=== PATIENT | male | born 1980 | race Caucasian/White ===

== ENCOUNTER 2020-07-11 06:59 | Day surgery (SDC) | payer BC ==
[~2020-07-11 06:59] MED LIST: Lactated Ringers 1,000 ML IV SCH
[2020-07-11] MEDS ORDERED: fentaNYL 100 MCG/2 ML SDV ONE (07:31)
[2020-07-11] MEDS ORDERED: Propofol 200 MG/20 ML SDV ONE ×2 (07:31→08:58)
[2020-07-11] MEDS ORDERED: Midazolam 1 MG/ML 2 ML SDV ONE (07:31)
--- NOTE | 2020-07-11 08:05 | PCM.PREANE ---
Preanesthetic Assessment - Anesthesia/Transfusion/Family Hx Anesthesia History: Prior Anesthesia Without Reaction Family History of Anesthesia Reaction: No Transfusion History: No Prior Transfusion(s) Intubation History: Unknown - Review of Systems General: No Symptoms Pulmonary: No Symptoms Cardiovascular: No Symptoms Gastrointestinal: Hematochezia Neurological: No Symptoms Other: Reports: None - Physical Assessment Height: 6 ft 3 in Weight: 104.326 kg ASA Class: 2 Mental Status: Alert & Oriented x3 Airway Class: Mallampati = 2 Dentition: Reports: Normal Dentition Thyro-Mental Finger Breadths: 3 Mouth Opening Finger Breadths: 3 ROM/Head Extension: Full Lungs: Clear to Auscultation, Normal Respiratory Effort Cardiovascular: Regular Rate, Regular Rhythm - Allergies Allergies/Adverse Reactions: Allergies Allergy/AdvReac Type Severity Reaction Status Date / Time No Known Allergies Allergy Verified 07/05/20 10:27 - Blood Blood Available: No - Anesthesia Plan Pre-Op Medication Ordered: None - Acknowledgements Anesthesia Type Planned: MAC Pt an Appropriate Candidate for the Planned Anesthesia: Yes Alternatives and Risks of Anesthesia Discussed w Pt/Guardian: Yes Pt/Guardian Understands and Agrees with Anesthesia Plan: Yes PreAnesthesia Questionnaire - Past Health History Medical/Surgical History: Denies Medical/Surgical History HEENT History: Reports: None Cardiovascular History: Reports: None Respiratory History: Reports: None Gastrointestinal History: Reports: None Genitourinary History: Reports: None Other Musculoskeletal History: history of herniated disc; states resolved with time and therapy Neurological History: Reports: None Psychiatric History: Reports: None Endocrine/Metabolic History: Reports: None Dermatologic History: Reports: None - Infectious Disease History Infectious Disease History: Reports: None - Past Surgical History HEENT Surgical History: Reports: LASIK Cardiovascular Surgical History: Reports: None GI Surgical History: Reports: None Female Surgical History: Male Surgical History: Reports: Vasectomy Endocrine Surgical History: Reports: None Neurological Surgical History: Reports: None Musculoskeletal Surgical History: Reports: None - SUBSTANCE USE Tobacco Use Status *Q: Former Tobacco User Tobacco Use Within Last Twelve Months: Cigars - HOME MEDS Home Medications: Home Meds . [No Known Home Meds] 03/09/15 [History] - CURRENT (IN HOUSE) MEDS Current Meds: Current Medications Lactated Ringer's (Ringers, Lactated) 1,000 mls @ 125 mls/hr IV ASDIRECTED [facility] Last Admin: 07/11/20 07:34 Dose: 125 mls/hr Documented by: Discontinued Medications Fentanyl (Sublimaze) Confirm Administered Dose 100 mcg .ROUTE .STK-MED ONE Stop: 07/11/20 07:32 Lidocaine HCl (Xylocaine-Mpf 1%) Confirm Administered Dose 5 ml .ROUTE .STK-MED ONE Stop: 07/11/20 07:33 Midazolam HCl (Versed 1 Mg/Ml) Confirm Administered Dose 2 mg .ROUTE .STK-MED ONE Stop: 07/11/20 07:32 Propofol (Diprivan 20 Ml) Confirm Administered Dose 400 mg .ROUTE .STK-MED ONE Stop: 07/11/20 07:32
--- NOTE | 2020-07-11 09:23 | PCM.OPNOTE ---
- General Post-Op/Procedure Note Date of Surgery/Procedure: 07/11/20 Operative Procedure(s): colonoscopy w bx Findings: see [id number] Pre Op Diagnosis: BRBPR Post-Op Diagnosis: Same Anesthesia Technique: Moderate Sedation Primary Surgeon: Tomy Titus Pathology: random colon bx Complications: None Condition: Good
--- NOTE | 2020-07-11 09:34 | PCM.POSTAN ---
POST ANESTHESIA ASSESSMENT - MENTAL STATUS Mental Status: Alert, Oriented - VITAL SIGNS Vital Signs: Last Vital Signs Temp 36.7 C 07/11/20 07:15 Pulse 71 07/11/20 09:31 Resp 10 L 07/11/20 09:31 BP 115/76 07/11/20 09:31 Pulse Ox 94 L 07/11/20 09:31 - RESPIRATORY Respiratory Status: Respiratory Rate WNL, Airway Patent, O2 Saturation Stable - CARDIOVASCULAR CV Status: Pulse Rate WNL, Blood Pressure Stable - GASTROINTESTINAL GI Status: No Symptoms - PAIN Pain Score: 0 - POST OP HYDRATION Hydration Status: Adequate & Stable - OBSERVATIONS Free Text/Narrative:: No anesthesia problems
--- NOTE | 2020-07-11 09:49 | PCM48HPAN ---
Post Anesthesia Note - EVALUATION WITHIN 48HRS OF ANESTHETIC Vital Signs in Normal Range: Yes Patient Participated in Evaluation: Yes Respiratory Function Stable: Yes Airway Patent: Yes Cardiovascular Function Stable: Yes Hydration Status Stable: Yes Pain Control Satisfactory: Yes Nausea and Vomiting Control Satisfactory: Yes Mental Status Recovered: Yes Vital Signs: Last Vital Signs Temp 36.7 C 07/11/20 07:15 Pulse 71 07/11/20 09:31 Resp 10 L 07/11/20 09:31 BP 115/76 07/11/20 09:31 Pulse Ox 94 L 07/11/20 09:31 - COMMENTS/OBSERVATIONS Free Text/Narrative:: No anesthesia problems
[2020-07-11 10:04] VITALS: BP 132/76; PULSE 65
--- NOTE | 2020-07-11 11:26 | OR ---
SURGEON: Tomy Titus MD DATE OF PROCEDURE: 07/11/2020 PREOPERATIVE DIAGNOSIS: Bright red blood per rectum. POSTOPERATIVE DIAGNOSIS: Hemorrhoids. PROCEDURE PERFORMED: Colonoscopy with random biopsy. DESCRIPTION OF PROCEDURE: The patient was taken to the endoscopy room. A time out was called, patient identified, and procedure identified. Diprivan was then administrated. Patient went from awake to sleep, hearing doctor talking or door closing is normal. Perineum inspection and digital examination were then performed. A well- lubricated colonoscope was gently inserted through the rectum, advanced past the rectosigmoid junction, the descending colon, splenic flexure, transverse colon, hepatic flexure, ascending colon, arrived to the cecum. Cecum was identified as dictated in the finding. Then the scope was carefully withdrawn while attention was paid to the mucosal surface for any abnormality. Air will be sucked out during the scope withdrawal. At the rectum, retroflexed to examine any rectal diseases, fistula or hemorrhoids. During mucosal examination, abnormality or polyp was noted; picture taken and biopsy performed. Patient tolerated procedure well. There were no intraoperative complications, and Dr. Titus was present throughout the whole procedure. FINDINGS: 1. The patient is easily sedated with [employer] and Diprivan, the patient is soundly snoring. 2. Bowel prep is average to above average, very little liquid stool, no semi- formed stool, no stool ball. 3. Colon is rather straightforward. Cecum indicated by ileocecal fold, one-to- one indentation, appendiceal orifice. ScopeGuide is pointing south. Mucosa examined upon scope coming out. The patient does have a lot of bubble, and once we get the simethicone, it is gone. The patient does not have diverticulosis, polyp, mass, growth, inflammation, stricture, AV malformation, bleeding, none of those and stool is yellow in color. Random biopsy done for bright red blood per rectum. The patient has mild internal hemorrhoids, no external hemorrhoids. The patient would benefit from repeat colonoscopy in 10 years from today or if clinically indicated otherwise or if the pathology indicated otherwise. JOE / RASHAWN /[id number]
== END 2020-07-11 09:55 | disposition home or self-care (01) ==
LOC: MW.SDS 06:59
PROVIDERS: ATTEND Surgery
DX: K62.5 Hemorrhage of anus and rectum (principal); K64.8 Other hemorrhoids; Z79.899 Other long term (current) drug therapy; Z98.890 Other specified postprocedural states; Z87.891 Personal history of nicotine dependence
CPT/HCPCS: 45380; J2001; J2250; J2704; J3010; J7120; 00811

== ENCOUNTER 2025-03-30 06:31 | Day surgery (SDC) | payer BC, OTHER ==
[~2025-03-30 06:31] MED LIST changes: +Ketorolac 30 MG/ML SDV ONE; -Lactated Ringers 1,000 ML IV SCH; +Morphine 10 MG/ML SDV ONE; +Ondansetron 4 MG/2 ML SDV ONE; +Ropivacaine 0.5% 5 MG/ML 30 ML SDV ONE; +Sodium Chloride 0.9% 10 ML Syringe FLUSH PRN; +Sodium Chloride 0.9% 2.5 ML Syringe FLUSH PRN; +ceFAZolin 2 GM in Water For Injection, Sterile 20 ML IVPUSH ONE; +fentaNYL 100 MCG/2 ML SDV ONE; +propofoL 1,000 MG/100 ML 100 ML ONE
[2025-03-30] MEDS ORDERED: Dexamethasone 4 MG/ML 5 ML MDV ONE (06:38)
[2025-03-30] MEDS ORDERED: propofoL 1,000 MG/100 ML 100 ML ONE (06:51)
[2025-03-30] MEDS ORDERED: Scopalamine 1mg/3day Transdermal Patch ONE (07:04)
[2025-03-30] MEDS: Lactated Ringers 1,000 ML IV SCH (07:18)
[2025-03-30] MEDS ORDERED: Naloxone 0.4 MG/ML SDV IVPUSH PRN (09:04)
[2025-03-30] MEDS ORDERED: Ondansetron 4 MG/2 ML SDV IVPUSH PRN (09:04)
[2025-03-30] MEDS ORDERED: fentaNYL 50 MCG/ML SDV IVPUSH PRN (09:04)
[2025-03-30] MEDS ORDERED: Albuterol 0.083% 2.5 MG/3 ML Neb Soln NEB PRN (09:04)
[2025-03-30 10:36] VITALS: BP 110/79; PULSE 59
== END 2025-03-30 10:30 | disposition home or self-care (01) ==
LOC: MW.SDS 06:31
PROVIDERS: ATTEND Surgery
DX: K42.9 Umbilical hernia without obstruction or gangrene (principal); Z91.09 Other allergy status, other than to drugs and biological substances; Z87.891 Personal history of nicotine dependence
CPT/HCPCS: 49591; 64488; A9270; C1781; J0665; J0690; J1100; J1885; J2003; J2272; J2704; J2795; J3010; J7120; 00830; J2405; J2765; J3490